=== PATIENT | male | born 1990 | race African-American/Black ===

== ENCOUNTER 2024-09-28 22:29 | Observation (INO) | payer OTHER, SELFPAY ==
[2024-09-28 23:34] LABS: #Basophils Less than 0.03 10x3/uL (0.0-0.2); #Eosinophils 0.08 10x3/uL (0.0-0.5); #Monocytes 0.35 10x3/uL (0.0-1.1); %Basophils 0.5 % (0.0-2.0); %Eosinophils 1.9 % (0.0-6.0); %Lymphocytes 40.7 % (18.0-47.0); %Monocytes 8.4 % (0.0-10.0); %Neutrophils 48.3 % (40.0-75.0); Hematocrit 35.9 % (38.8-50.0); Mean Corpuscular HGB CONC 30.6 g/dL (32.0-36.0); Mean Corpuscular Hemoglobin 24.1 pg (27.0-33.0); Mean Corpuscular Volume 78.7 fL (81.2-95.1); Mean Platelet Volume 9.7 fL (7.4-10.4); Platelet Count 309 10x3/uL (150-450); RBC Distribution Width 13.4 % (11.5-14.5); Red Blood Cell (RBC) Count 4.56 10x6/uL (4.32-5.72); White Blood Cell (WBC) Count 4.15 10x3/uL (3.5-10.5)
[2024-09-28 23:58] LABS: ALT (SGPT) 9 U/L (8-55); AST (SGOT) 9 U/L (5-34); Albumin 3.1 g/dL (3.5-5.0); Alkaline Phosphatase 94 U/L (40-110); Anion Gap 15 mmol/L (10-20); BUN (Urea Nitrogen) 21 mg/dL (8.9-20.6); Bilirubin, Total Less than 0.2 mg/dL (0.2-1.2); Calc. Creatinine Clearance 0 mL/min (70-130); Calcium 9.3 mg/dL (7.8-10.44); Carbon Dioxide 25 mmol/L (22-29); Chloride 93 mmol/L (98-107); Estimated GFR 56; Globulin 3.7 g/dL (2.4-3.5); Potassium 4.8 mmol/L (3.5-5.1); Protein, Total 6.8 g/dL (6.0-8.3); Sodium 128 mmol/L (136-145)
[2024-09-29 00:06] LABS: Acetaminophen Less than 10 mcg/mL (Less than 10); Alcohol Less than 10.0 mg/dL (Less than 10); Critical Call Chemistry NUR.ERR@0005; Glucose 736 mg/dL (70-105); Salicylate Less than 8.0 mg/dL (Less than 8.0)
[2024-09-29 01:00] LABS: Troponin I Less than 0.010 ng/mL (< 0.028)
[2024-09-29 01:31] LABS: Actual Bicarbonate (HCO3v) 29.6 mEq/L (22-28); Analyzer IN Cardio CS ER; Calcium, Ionized (venous) 1.14 mmol/L (1.16-1.32); Chloride (VBG) 91 mmol/L (98-106); Hematocrit-VBG 36 % (42.0-52.0); Hemoglobin (Hb) 12.2 g/dL (13.2-17.3); Potassium (VBG) 5.48 mmol/L (3.70-5.30); Puncture Site Other Site; RapidComm Collect By RN; Sodium 128 mmol/L (133-146); pH (venous) 7.404 (7.32-7.43)
[2024-09-29 01:36] LABS: Amphetamine Not Detected (NotDetected); Barbiturates Screen Not Detected (NotDetected); Benzodiazepine Screen Not Detected (NotDetected); Cocaine Metabolite Screen Not Detected (NotDetected); Methadone Not Detected (NotDetected); Methamphetamine Not Detected (NotDetected); Opiate Screen Not Detected (NotDetected); Oxycodone Screen Not Detected (NotDetected); Phencyclidine (PCP) Not Detected (NotDetected); THC/Cannabinoid Screen Not Detected (NotDetected); Tricyclic Screen Not Detected (NotDetected)
[2024-09-29] MEDS ORDERED: Insulin Regular, Human 100 UNIT/ML 10 ML VIAL ONE (02:12)
[2024-09-29] MEDS ORDERED: Calcium Carbonate 500 MG ChewTAB PO PRN (02:16)
[2024-09-29] MEDS ORDERED: Glucagon 1 MG/ML KIT IM PRN (02:16)
[2024-09-29] MEDS ORDERED: Senokot S 8.6-50 MG TAB PO PRN (02:16)
[2024-09-29] MEDS ORDERED: Zolpidem Tartrate 5 MG TAB PO PRN (02:16)
[2024-09-29] MEDS ORDERED: Dextrose 50% Abboject 50 ML SYRINGE SLOW IVP PRN (02:16)
[2024-09-29] MEDS ORDERED: Dextrose 5% in Water 1,000 ML IV PRN (02:16)
[2024-09-29] MEDS ORDERED: Guaifenesin DM 100-10/5 ML UDCUP PO PRN (02:16)
[2024-09-29 03:39] VITALS: BMI 26.3
[2024-09-29] MEDS: Amlodipine 5 MG TAB PO SCH ×2 (03:51→12:18)
[2024-09-29] MEDS: Lactated Ringer's 500 ML IV SCH (03:51)
[2024-09-29] MEDS: Lactated Ringer's 1,000 ML IV SCH (03:52)
[2024-09-29] MEDS: Lantus 1000 UNITS/10 ML VIAL SC SCH ×4 (04:08→23:10)
[2024-09-29] MEDS: Insulin Lispro 100 UNIT/ML 10 ML VIAL SC PRN (04:09)
[2024-09-29 05:06] LABS: Influenza A by NAA Not Detected (NotDetected); Influenza B by NAA Not Detected (NotDetected); RSV by NAA Not Detected (NotDetected); SARS-CoV-2 NAA Rapid Test Not Detected (NotDetected)
[2024-09-29] MEDS: Acetaminophen 325 MG TAB PO PRN (12:19)
[2024-09-29 17:17] LABS: Hemoglobin A1c Greater than 14.0 % (4.0-6.0)
[2024-09-29 18:26] LABS: Anion Gap 15 mmol/L (10-20); BUN (Urea Nitrogen) 18 mg/dL (8.9-20.6); CK (CPK) 142 U/L (30-200); Calc. Creatinine Clearance 78 mL/min (70-130); Calcium 8.8 mg/dL (7.8-10.44); Carbon Dioxide 21 mmol/L (22-29); Chloride 95 mmol/L (98-107); Estimated GFR 55; Magnesium 1.7 mg/dL (1.6-2.6); Potassium 5.5 mmol/L (3.5-5.1); Sodium 125 mmol/L (136-145)
[2024-09-29 18:37] LABS: Glucose 755 mg/dL (70-105)
[2024-09-29] MEDS ORDERED: Insulin Glargine 30 UNITS/0.3 ML VIAL SC SCH (21:00)
[2024-09-29] MEDS: Sodium Chloride 0.9% 1,000 ML IV SCH (21:23)
[2024-09-29] MEDS: Insulin Regular, Human 100 UNIT/ML 10 ML VIAL SC SCH (21:23)
[2024-09-29] MEDS: Enoxaparin 40 MG (0.4 mL) SYRINGE SC SCH (23:18)
[2024-09-30] MEDS: Ondansetron PF 4 MG/2 ML Vial IVP SCH (01:53)
[2024-09-30 04:30] LABS: Anion Gap 14 mmol/L (10-20); BUN (Urea Nitrogen) 15 mg/dL (8.9-20.6); Calc. Creatinine Clearance 100 mL/min (70-130); Calcium 9.2 mg/dL (7.8-10.44); Carbon Dioxide 24 mmol/L (22-29); Chloride 101 mmol/L (98-107); Estimated GFR 75; Potassium 4.9 mmol/L (3.5-5.1); Sodium 134 mmol/L (136-145)
[2024-09-30 04:33] LABS: Critical Call Chemistry NUR.TL5@0433; Glucose 414 mg/dL (70-105)
[2024-09-30 16:23] VITALS: BP 150/85; TEMP 99
== END 2024-09-30 15:35 ==
LOC: CSHERS 22:29 → CSHTELE 09-29 02:19
PROVIDERS: ADMIT Student in an Organized Health Care Education/Training Program; ATTEND Student in an Organized Health Care Education/Training Program
DX: R45.851 Suicidal ideations (principal); I10 Essential (primary) hypertension; E11.65 Type 2 diabetes mellitus with hyperglycemia; E87.1 Hypo-osmolality and hyponatremia; F41.9 Anxiety disorder, unspecified; F32.A Depression, unspecified; F15.10 Other stimulant abuse, uncomplicated; N17.9 Acute kidney failure, unspecified; Z88.8 Allergy status to other drugs, medicaments and biological substances; Z79.01 Long term (current) use of anticoagulants; Z79.899 Other long term (current) drug therapy
CPT/HCPCS: 0241U; 36415; 36416; 71045; 80048; 80053; 80306; 80307; 82010; 82550; 82805; 83036; 83735; 83930; 84443; 84484; 85025; 93005; 96361; 96374; 96375; G0378; J1815; J2405; J7120